=== PATIENT | female | born 2000 | race Caucasian/White ===

== ENCOUNTER 2024-12-18 08:04 | Outpatient (CLI) | payer OTHER, SELFPAY ==
--- NOTE | 2025-01-13 11:27 | WPDSLEEPSTUD ---
Sleep Study Date of Study: 12/18/24 Ordering Provider: Indu Sheppard DO Interpreting Physician: Lana Lopez MD Sleep Study Type: Polysomnogram Height: 1.63 m Weight: 51.71 kg Body Mass Index: 19.5 Neck Circumference (inches): 12 [place]: 4 Reason for Sleep Study Fatigue, low energy, non restorative sleep, excessive daytime sleepiness and need for naps Sleep History Luc Horta is a 24-year-old woman with a history of low energy, non restorative sleep, need for napping in the day. Without caffeine, she feels very sleepy. She previously was diagnosed with moderate obstructive sleep apnea, tried CPAP for 9 months but could not tolerate it. She was treated with an adult palate lead architect which eliminated her obstructive sleep apnea as shown by a follow-up home sleep test. However, she still struggles with daytime fatigue. She sleeps well at night but wakes up feeling tired. She never awakens from sleep short of breath. She never wakes at night with heartburn, belching or coughing.??She occasionally snores, never snores loudly enough that others complain. She has trouble sleeping when she has a cold. She never wakes up gasping for breath during the night. She never has breathing problems at night observed by others. She never sweats excessively at night. She never notices her heart pounding or beating irregularly during the night. She frequently falls asleep during the day. She never falls asleep involuntarily, never falls asleep while driving. She never experiences loss of muscle tone with strong emotion. She rarely feels paralyzed on waking or falling asleep. She never experiences vivid dreams upon waking or falling asleep. She never feels afraid of going to sleep. She occasionally has nightmares. She occasionally recalls her dreams. She occasionally has thoughts racing through her mind. She constantly feels sad or depressed. She frequently feels anxiety. She never notices parts of her body jerk. She never kicks during the night. She never feels crawling or aching feelings in her legs. She never feels leg pain at night. She never has morning jaw pain, and never grinds her teeth at night. She never feels bothered by pain during the day, is never awakened by pain during the night. She never wakes up feeling stiff in the morning, never wakes feeling sore or achy in the morning. She never awakens with pain in her neck, spine, or joints. Normal bedtime is 10:00 p.m., falling asleep within 20 minutes, waking anywhere between 0 a 3 times at night, may be able to return to sleep within 2 minutes She wakes at 8:00 a.m., reports getting 10 hours of sleep on average. She keeps the same schedule on weekends. She takes naps in the afternoon or evening. A short nap lasting 10-15 minutes is not refreshing. She is usually drowsy for 3 hours after waking. She feels better in the evening compared to other times of day. Habits:??Tobacco: Never smoker Caffeine: 1 cup of coffee per day Alcohol: none Recreational substances: none PMFSH Past Medical History Medical History Raynauds syndrome PCOS (polycystic ovarian syndrome) Sleep apnea Bipolar 1 disorder Anxiety Anemia Surgical History Surgical History [place] teeth extracted Family History Family History Father Alcoholism Mother Hypertension Heart problem Sibling Depression Anxiety Grandparent Heart problem Grandparent Breast cancer Heart problem Diabetes mellitus Grandparent Malignant neoplasm of prostate Grandparent Heart problem Social History Social History Smoking status: Never smoker Second hand tobacco smoke exposure: No Alcohol intake: never Substance use: never Do You Feel Safe in your Home?: Yes Lack of Transportation: No Lack of Food: Never True Current Housing: I Have Housing Concerned About Future Housing: No Difficulty Paying Gas/Electric Bills: Decline to Answer Difficulty Paying for Meds: Decline to Answer Currently Unemployed: YES Education: Trade/Vocational Certificate Difficulty w/ Childcare or Family Care: No Living arrangements: with family Occupation/Education: unemployed Gender identity (if verbalized by the patient): Female Agree to blood products: No Medications Home Medications ?Medication ?Instructions ?Recorded ?Confirmed ?Type aripiprazole 10 mg tablet 10 mg PO QHS 11/13/24 11/13/24 History bupropion HCl 150 mg 24 hr tablet, 150 mg PO QAM 11/13/24 11/13/24 History extended release (Wellbutrin XL) inositol 750 mg capsule mg PO BID 11/13/24 11/13/24 History Sleep Procedure A full night polysomnogram using the [employer] multi-channel system recorded the standard physiologic parameters including EEG, EOG, submentalis EMG, anterior tibialis EMG, EKG, body position, nasal and oral airflow using nasal pressure sensor and thermistor. Respiratory parameters of chest and abdominal movements were recorded with Respiratory Inductance Plethysmography belts. Oxygen saturation was recorded by pulse oximetry. Video monitoring was also performed. Sleep stages, periodic limb movements, and EEG arousals were scored in 30 second epochs according to the criteria of the AASM Scoring Manual. The Apnea-Hypopnea Index was calculated using CMS guidelines for definition of hypopnea while scoring respiratory events. She did not meet criteria for split night study so this was conducted as a full night basic polysomnogram. Sleep Architecture The total recording time was 547.2 minutes. The total sleep time was 374.0 minutes. Sleep latency was 32.3 minutes. REM latency was 288.0 minutes. Sleep efficiency was 68.3%. The patient had 64 awakenings for an awakening index of 10.3. Wake after sleep onset time was 141.0 minutes. The patient spent 59.5 minutes, 15.9% of total sleep time in Stage N1. The patient spent 206.5 minutes, 55.2% in Stage N2. The patient spent 36.5 minutes, 9.8% in Stage N3. The patient spent 71.5 minutes, 19.1% in Stage REM sleep. Respiratory Analysis The patient had no hypopneas, no obstructive apneas, no mixed apneas, and 3 central apneas for an overall Apnea Hypopnea Index of 0.5. The REM Apnea Hypopnea Index was 3.4. The NREM Apnea Hypopnea Index was 0. The patient had a Central Apnea Hypopnea Index of 0.5. There were no Respiratory Effort Related Arousals. The Respiratory Disturbance Index is 0.6 events per hour. There was no evidence of Catalino-Anguiano Respirations. Arousals There were 173 total arousals for an arousal index of 27.8. There were 169 spontaneous arousals for an index of 27.1. There were 1 arousals due to respiratory events for an index of 0.2. There were no arousals due to periodic limb movements. There were 3 arousals due to isolated limb movements for an index of 0.5. Periodic Limb Movements The patient had 9 isolated limb movements with an index of 1.4. The patient had no periodic limb movements.. Patient had a total of 9 limb movements with a total limb movement index of 1.4. Oximetry Data The patient had an average oxygen saturation of 96.9% in sleep with a minimum oxygen saturation of 90% and a maximum oxygen saturation of 99%. The patient had 3 oxygen desaturations that were 4% or greater resulting in an Oxygen Desaturation Index of 0.5. The patient spent no time with an oxygen saturation below 88%. Snoring Profile Snoring was mild and intermittent. Cardiac Profile The EKG showed normal sinus rhythm, average pulse rate of 73.7 bpm with a minimum pulse of rate of 59 bpm and a maximum pulse rate of 105 bpm. No arrhythmias noted. EEG Profile Unremarkable, no evidence of seizures. Assessment and Plan Assessment and Plan (1) Daytime hypersomnia: Code(s): G47.10 - Hypersomnia, unspecified Status: Acute Assessment and Plan: This basic nocturnal polysomnogram on 12/18/2024 does not show sleep disordered breathing. The apnea-hypopnea index with 3% criteria is 0.8, the 4% criteria 0.5. Lowest saturation is 90%. She had mild intermittent snoring. She did not qualify for split night study. She proceeded with a multiple sleep latency test the following day as she met criteria with greater than 6 hours of sleep on this polysomnogram. She did have a prolonged sleep latency of 32.3 minutes and low sleep efficiency 68.3%. REM latency was also delayed, 288 minutes. She had a large number of spontaneous arousals. Clinical correlation is recommended. Data The data obtained during this sleep study is adequate for interpretation. Certification This sleep study has been reviewed by a board certified sleep medicine physician.
[2025-01-14 13:03] VITALS: BMI 19.5
--- NOTE | 2025-01-15 09:08 | WPDSLEEPSTUD ---
Sleep Study Date of Study: 12/19/24 Ordering Provider: Indu Sheppard DO Interpreting Physician: Lana Lopez MD Sleep Study Type: Multiple Sleep Latency Test Height: 1.63 m Weight: 51.71 kg Body Mass Index: 19.5 Neck Circumference (inches): 12 [place]: 4 Reason for Sleep Study Hypersomnolence Sleep History Please refer to her sleep history from the prior night's polysomnogram. The patient met criteria for a multiple sleep latency test with greater than 6 hours of sleep and absence of disordered breathing. [facility] Past Medical History Medical History Raynauds syndrome PCOS (polycystic ovarian syndrome) Sleep apnea Bipolar 1 disorder Anxiety Anemia Surgical History Surgical History [place] teeth extracted Family History Family History Father Alcoholism Mother Hypertension Heart problem Sibling Depression Anxiety Grandparent Heart problem Grandparent Breast cancer Heart problem Diabetes mellitus Grandparent Malignant neoplasm of prostate Grandparent Heart problem Social History Social History Smoking status: Never smoker Second hand tobacco smoke exposure: No Alcohol intake: never Substance use: never Do You Feel Safe in your Home?: Yes Lack of Transportation: No Lack of Food: Never True Current Housing: I Have Housing Concerned About Future Housing: No Difficulty Paying Gas/Electric Bills: Decline to Answer Difficulty Paying for Meds: Decline to Answer Currently Unemployed: YES Education: Trade/Vocational Certificate Difficulty w/ Childcare or Family Care: No Living arrangements: with family Occupation/Education: unemployed Gender identity (if verbalized by the patient): Female Agree to blood products: No Medications Home Medications ?Medication ?Instructions ?Recorded ?Confirmed ?Type aripiprazole 10 mg tablet 10 mg PO QHS 11/13/24 11/13/24 History bupropion HCl 150 mg 24 hr tablet, 150 mg PO QAM 11/13/24 11/13/24 History extended release (Wellbutrin XL) inositol 750 mg capsule mg PO BID 11/13/24 11/13/24 History Sleep Procedure The recording montage for the MSLT includes frontal (F3-M2 or F4-M1), central (C3-M2 or C4-M1), occipital (O1-M2 or O2-M1) derivations, left and right eye EOGs, mental/submental EMG, and EKG. Nap trials started at 08:55:21 AM following an overnight polysomnogram that ended at 07:24:46 AM with an overall Apnea Hypopnea index of 0.8 events per hour following AASM 3% desaturation and/or arousal rule and an overall Apnea Hypopnea index of 0.5 events per hour following CMS 4% desaturation guidelines. Sleep onset REM (SOREM) did not occur during the overnight polysomnogram. Nap 1 commenced at 08:55:21 AM. Sleep latency was 18.2 minutes. REM sleep did not occur. Total sleep time was 13.5 minutes. Nap was terminated at 09:29:06 AM. The patient reported that sleep occurred. The patient reported that dreaming did not occur. Nap 2 commenced at 10:54:06 AM. Sleep latency was 6.5 minutes. REM sleep did not occur. Total sleep time was 11.5 minutes. Nap was terminated at 11:15:42 AM. The patient reported that sleep occurred. The patient reported that dreaming did not occur. Nap 3 commenced at 12:54:04 PM. Sleep latency was 6.5 minutes. REM sleep did not occur. Total sleep time was 8 minutes. Nap was terminated at 01:16:02 PM. The patient reported that sleep occurred. The patient reported that dreaming did not occur. Nap 4 commenced at 02:53:04 PM. Sleep latency was 9.0 minutes. REM sleep did not occur. Total sleep time was 11.0 minutes. Nap was terminated at 03:17:22 PM. The patient reported that sleep did not occur. The patient reported that dreaming did not occur. Nap 5 commenced at 04:53:16 PM. Sleep latency was 14.8 minutes. REM sleep did not occur. Total sleep time was 3.5 minutes. Nap was terminated at 05:23:48 PM. The patient reported that sleep did not occur. The patient reported that dreaming did not occur. Sleep Architecture NA Respiratory Analysis NA Arousals NA Periodic Limb Movements NA Oximetry Data NA Snoring Profile NA Cardiac Profile NA EEG Profile Alpha intrusion is noted. Assessment and Plan Assessment and Plan (1) Daytime hypersomnia: Code(s): G47.10 - Hypersomnia, unspecified Status: Acute Assessment and Plan: This multiple sleep latency test on December 19, 2024 shows that the patient achieved sleep in 5 of 5 nap opportunities. The overall average sleep latency was 9.5 minutes. The patient achieved REM sleep (SOREM) in 0 naps. The overall average REM latency was greater than 20 minutes. This is not consistent with narcolepsy. The patient had alpha intrusion on the EEG in the polysomnogram. On the her nocturnal polysomnogram and the multiple sleep latency test, the patient had frequent shifts between wake and stage I. She is not getting consolidated sleep. Patient may have sleep state misperception which is an older term for psychophysiologic insomnia. Clinical correlation is advised. Data The data obtained during this sleep study is adequate for interpretation. Certification This sleep study has been reviewed by a board certified sleep medicine physician.
[2025-01-20 12:54] VITALS: BMI 19.5
== END 2024-12-19 17:33 | disposition home or self-care (01) ==
PROVIDERS: Visit Provider Family Medicine
DX: G47.10 Hypersomnia, unspecified (principal)
CPT/HCPCS: 95805; 95810